=== PATIENT | male | born 1965 | race Caucasian/White ===

== ENCOUNTER 2017-03-22 02:59 | Emergency (ER) | payer OTHER ==
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
[~2017-03-22 02:59] MED LIST: CIPRO PO; FAMOTIDINE PO; LEVOFLOXACIN500 MG PO; VICODIN PO; VOLTAREN50 MG PO
== END 2017-03-22 06:25 | disposition home or self-care (01) ==
LOC: CED 02:59
DX: S83.421A Sprain of lateral collateral ligament of right knee, initial encounter (principal); S70.11XA Contusion of right thigh, initial encounter; Z79.899 Other long term (current) drug therapy; W14.XXXA Fall from tree, initial encounter; Y93.39 Activity, other involving climbing, rappelling and jumping off; Y92.009 Unspecified place in unspecified non-institutional (private) residence as the place of occurrence of the external cause
CPT/HCPCS: 29505; 73552; 73560; 99284